=== PATIENT | male | born 1950 | race African-American/Black ===

== ENCOUNTER 2018-02-17 20:28 | Inpatient (IN) | payer MEDICARE, MEDICAID ==
[~2018-02-17] VITALS: Ht 165.1 cm; Wt 59.0 kg
[~2018-02-17 20:28] MED LIST: AMLO5TAB88 GT; BISA10SU62 RC; CLON-457 GT; DEXTL GT; DOCU100T GT; FOLI-43 GT; KEPPSOL GT; LISI10TA5 GT; MAG-4 GT; MOM GT; OMEP20CA10 GT; PRO STAT SUGAR FREE GT; SEVE0.8P GT
[2018-02-17] MEDS: DEXT 5%/0.45% NACL 1000ML 1,000 ML IV SCH (22:16)
[2018-02-17] MEDS ORDERED: HYDROMORPHONE HCL/PF 2MG/ML CPJ IV PRN (22:30)
[2018-02-17] MEDS ORDERED: LORAZEPAM 2MG/ML CPJ IV PRN (22:30)
[2018-02-17] MEDS ORDERED: ACETAMINOPHEN 650MG/20.3ML UDC GT PRN (22:30)
[2018-02-17] MEDS ORDERED: ONDANSETRON HCL 4MG/2ML INJ IV PRN (22:30)
[2018-02-17 23:42] LABS: CHLORIDE 101 mEq/L (98-107)
[2018-02-17 23:43] LABS: BASOPHILS % 0.9 % (0.0-2.0); EOSINOPHILS % 8.7 % (0.0-5.0); HEMATOCRIT. 34.5 % (42.0-52.0); HEMOGLOBIN. 11.3 g/dL (14.0-18.0); LYMPHOCYTES % 19.8 % (20.0-50.0); MEAN CORPUSCULAR HEMOGLOBIN 32.4 pg (28.0-32.0); MEAN CORPUSCULAR VOLUME 98.6 fL (80.0-94.0); MEAN PLATELET VOLUME 7.5 fl (7.4-10.4); MONOCYTES % 5.1 % (2.0-8.0); NEUTROPHILS % 65.5 % (40.0-76.0); PLATELET 224 x1000/uL (130-400); RED CELL DISTRIBUTION WIDTH 17.5 % (11.6-14.6)
[2018-02-17 23:51] LABS: INR 1.1; PARTIAL THROMBOPLASTIN TIME 32.5 sec (23.4-31.0); PROTHROMBIN TIME 10.7 sec (9.1-11.1)
[2018-02-18] MEDS ORDERED: LEVETIRACETAM 500MG PREMIX 100 ML IV ONE (00:30)
[2018-02-18] MEDS ORDERED: LEVETIRACETAM 500MG PREMIX 100 ML IV SCH (02:15)
[2018-02-18 06:25] LABS: BASOPHILS % 0.6 % (0.0-2.0); EOSINOPHILS % 4.8 % (0.0-5.0); HEMATOCRIT. 35.1 % (42.0-52.0); HEMOGLOBIN. 11.7 g/dL (14.0-18.0); LYMPHOCYTES % 19.3 % (20.0-50.0); MEAN CORPUSCULAR HEMOGLOBIN 32.9 pg (28.0-32.0); MEAN CORPUSCULAR VOLUME 98.9 fL (80.0-94.0); MEAN PLATELET VOLUME 7.6 fl (7.4-10.4); MONOCYTES % 5.1 % (2.0-8.0); NEUTROPHILS % 70.2 % (40.0-76.0); PLATELET 239 x1000/uL (130-400); RED BLOOD CELL COUNT 3.55 mill/uL (4.7-6.1); RED CELL DISTRIBUTION WIDTH 18.7 % (11.6-14.6)
[2018-02-18] MEDS ORDERED: DIPHENHYDRAMINE 50MG/ML VIAL IV ONE (15:00)
[2018-02-18] MEDS ORDERED: SODIUM CHLORIDE 0.9% 1,000 ML IV ONE (15:27)
[2018-02-18 18:08] VITALS: BP 183/105
[2018-02-18 18:11] VITALS: BP 183/105
[2018-02-18] MEDS: DEXT 5%/0.45% NACL 1000ML 1,000 ML IV SCH ×2 (18:32→20:31)
[2018-02-18 19:25] VITALS: BP 160/86
[2018-02-18] MEDS ORDERED: ENOXAPARIN 40MG/0.4ML SYR SUBCUT SCH (19:30)
[2018-02-19] VITALS: BP 163/88
[2018-02-19 04:00] VITALS: BP 158/88
[2018-02-19 08:00] VITALS: BP 159/92
[2018-02-19] MEDS ORDERED: LEVOFLOXACIN 250MG PREMIX 50 ML IV SCH (11:00)
[2018-02-19 11:25] LABS: BASOPHILS % 0.6 % (0.0-2.0); EOSINOPHILS % 2.6 % (0.0-5.0); HEMATOCRIT. 32.9 % (42.0-52.0); LYMPHOCYTES % 16.5 % (20.0-50.0); MEAN CORPUSCULAR HEMOGLOBIN 32.6 pg (28.0-32.0); MEAN PLATELET VOLUME 7.3 fl (7.4-10.4); MONOCYTES % 5.4 % (2.0-8.0); NEUTROPHILS % 74.9 % (40.0-76.0); PLATELET 218 x1000/uL (130-400); RED BLOOD CELL COUNT 3.36 mill/uL (4.7-6.1); RED CELL DISTRIBUTION WIDTH 17.8 % (11.6-14.6)
[2018-02-19 12:00] VITALS: BP 142/92
[2018-02-19] MEDS: LEVOFLOXACIN 250MG PREMIX 50 ML IV SCH ×2 (13:00→16:55)
[2018-02-19] MEDS ORDERED: CLONIDINE 0.1MG TABLET GT PRN (13:15)
[2018-02-19] MEDS ORDERED: BISACODYL 10MG SUPP PR PRN (13:15)
[2018-02-19] MEDS ORDERED: MAGNESIUM/ALUMINUM HYDROXIDE/SIMETHICONE 30ML UDC GT PRN (13:15)
[2018-02-19] MEDS ORDERED: GUAIFENESIN 200MG/10ML SUGAR FREE UDC GT PRN (13:30)
[2018-02-19 16:00] VITALS: BP 115/64
[2018-02-19] MEDS: DOCUSATE SODIUM SUGAR FREE 100MG/10ML UDC GT SCH (16:55)
[2018-02-19] MEDS: CALCIUM ACETATE 667MG CAPSULE GT SCH (16:55)
[2018-02-19] MEDS ORDERED: SEVELAMER CARBONATE 800 MG TABLET PO SCH (17:00)
[2018-02-19 19:55] LABS: FOLIC ACID (FOLATE) SERUM >20 ng/mL ng/mL (>5.38)
[2018-02-19 20:00] VITALS: BP 125/64
[2018-02-19 20:06] LABS: VITAMIN B12 SERUM 1943 pg/mL (211-911)
[2018-02-19] MEDS ORDERED: ENOXAPARIN 30MG/0.3ML SYR SUBCUT SCH (20:30)
[2018-02-19] MEDS: LEVETIRACETAM 500MG/5ML CUP GT SCH (20:33)
[2018-02-19] MEDS: AMLODIPINE 5MG TABLET GT SCH (20:34)
[2018-02-19 21:23] LABS: ETHANOL BLOOD < 10 mg/dL
[2018-02-19 21:28] LABS: T4 FREE 1.47 ng/dL (0.76-1.46)
[2018-02-20] VITALS: BP 138/83
[2018-02-20 04:00] VITALS: BP 102/60
[2018-02-20 06:43] LABS: BASOPHILS % 0.5 % (0.0-2.0); EOSINOPHILS % 7.6 % (0.0-5.0); LYMPHOCYTES % 21.3 % (20.0-50.0); MEAN CORPUSCULAR HEMOGLOBIN 33.1 pg (28.0-32.0); MEAN CORPUSCULAR VOLUME 98.7 fL (80.0-94.0); MEAN PLATELET VOLUME 7.8 fl (7.4-10.4); MONOCYTES % 7.3 % (2.0-8.0); NEUTROPHILS % 63.3 % (40.0-76.0); PLATELET 223 x1000/uL (130-400); RED BLOOD CELL COUNT 3.34 mill/uL (4.7-6.1)
[2018-02-20] MEDS ORDERED: OMEPRAZOLE 20MG CAPSULE EXTENDED RELEASE PO SCH (07:40)
[2018-02-20] MEDS ORDERED: LANSOPRAZOLE 30MG DR CAPSULE GT SCH (07:40)
[2018-02-20 08:00] VITALS: BP 109/65
[2018-02-20] MEDS ORDERED: FOLIC ACID 1MG TABLET GT SCH (09:00)
[2018-02-20] MEDS: AMLODIPINE 5MG TABLET GT SCH (09:00)
[2018-02-20] MEDS ORDERED: LISINOPRIL 10MG TABLET GT SCH (09:00)
[2018-02-20] MEDS: DOCUSATE SODIUM SUGAR FREE 100MG/10ML UDC GT SCH ×2 (09:27→17:09)
[2018-02-20] MEDS: LEVETIRACETAM 500MG/5ML CUP GT SCH (09:27)
[2018-02-20] MEDS: CALCIUM ACETATE 667MG CAPSULE GT SCH ×3 (09:33→17:09)
[2018-02-20 12:00] VITALS: BP 126/69
[2018-02-20 15:03] VITALS: BP 120/69
[2018-02-20 16:00] VITALS: BP 114/64
[2018-03-04 13:07] LABS: BARBITURATE SCREEN Negative ug/mL (Cutoff:0.1); BENZODIAZEPINE SCREEN Negative ng/mL (Cutoff:20); OPIATES SCREEN Negative ng/mL (Cutoff:5); PHENCYCLIDINE SCREEN Negative ng/mL (Cutoff:8)
== END 2018-02-20 17:46 | DRG 52 ==
LOC: ER 20:28 → EDBEDREQ 23:57 → EDBEDREQTM 23:57 → ENRESERV 02-18 17:20 → 7WST 02-18 17:52
PROVIDERS: ADMIT Internal Medicine Nephrology; ATTEND Internal Medicine Nephrology
PROC: 5A1D70Z Performance of Urinary Filtration, Intermittent, Less than 6 Hours Per Day (ICD-10-PCS; principal; 2018-02-18)
DX: G92 Toxic encephalopathy (principal); E44.0 Moderate protein-calorie malnutrition; E11.22 Type 2 diabetes mellitus with diabetic chronic kidney disease; E11.69 Type 2 diabetes mellitus with other specified complication; I12.0 Hypertensive chronic kidney disease with stage 5 chronic kidney disease or end stage renal disease; I69.351 Hemiplegia and hemiparesis following cerebral infarction affecting right dominant side; S01.81XA Laceration without foreign body of other part of head, initial encounter; D64.9 Anemia, unspecified; S01.119A Laceration without foreign body of unspecified eyelid and periocular area, initial encounter; G40.909 Epilepsy, unspecified, not intractable, without status epilepticus; N18.6 End stage renal disease; R41.4 Neurologic neglect syndrome; R47.01 Aphasia; W06.XXXA Fall from bed, initial encounter; Z74.01 Bed confinement status; Y93.89 Activity, other specified; Y92.89 Other specified places as the place of occurrence of the external cause; Y99.8 Other external cause status; Z99.2 Dependence on renal dialysis; Z79.899 Other long term (current) drug therapy; Z68.21 Body mass index [BMI] 21.0-21.9, adult
CPT/HCPCS: 36415; 70551; 71045; 80048; 80307; 82140; 82607; 82746; 82962; 83036; 83735; 83880; 84439; 84443; 84481; 84484; 93005; 96365; 96366; 96375; 97163; 97166; 99285; A6261; G0482; J1170; J1200; J1650; J1953; J1956; J7030; J7050